=== PATIENT | female | born 1995 | race Caucasian/White ===

== ENCOUNTER 2018-05-04 23:28 | Emergency (ER) | payer BC ==
[~2018-05-04] VITALS: Ht 167.6 cm; Wt 62.1 kg
--- NOTE | 2018-05-05 00:14 | NUR ---
Pt in room 2A.
--- NOTE | 2018-05-05 00:27 | NUR ---
Dr. Brwon at bedside for MSE.
[2018-05-05] MEDS ORDERED: LIDOCAINE 4% TOPICAL 50 ML BOTTLE TP ONE (00:30)
[2018-05-05] MEDS ORDERED: TDAP DIPH,PERTUSS,TET VAC/PF 0.5 ML DISP.SYRIN IM ONE ×2 (00:30→00:31)
[2018-05-05] MEDS ORDERED: SILVER SULFADIAZINE 1% CREAM 25 GM TUBE TP ONE ×2 (01:30→01:31)
--- NOTE | 2018-05-05 01:35 | NUR ---
Patient discharged to home in stable conditon. Written and verbal after care instructions given. Patient verbalizes understanding of instructions. Patient ambulated out of ER with steady gait, no acute signs of distress, VSS, all belongings taken.
[2018-05-05 01:36] VITALS: BP 114/82
== END 2018-05-05 01:36 | disposition home or self-care (01) ==
LOC: ER 23:31
DX: T23.212A Burn of second degree of left thumb (nail), initial encounter (principal); X08.8XXA Exposure to other specified smoke, fire and flames, initial encounter; Y93.89 Activity, other specified; Y92.89 Other specified places as the place of occurrence of the external cause; Y99.8 Other external cause status
CPT/HCPCS: 16020; 90715; A4217; A4663